=== PATIENT | male | born 1975 ===

== ENCOUNTER 2024-06-05 06:19 | Day surgery (SDC) | payer BC, SELFPAY | END 2024-06-05 13:13 | disposition home or self-care (01) | LOC: GI 06:19 | PROVIDERS: ATTENDING PHYSICIAN Internal Medicine Gastroenterology | DX: Z12.11 Encounter for screening for malignant neoplasm of colon (principal); K63.89 Other specified diseases of intestine; K64.8 Other hemorrhoids | CPT/HCPCS: 45380; 88305 ==